=== PATIENT | female | born 1965 | race Caucasian/White ===

== ENCOUNTER 2018-09-09 17:52 | Emergency (ER) | payer OTHER ==
--- NOTE | 2018-09-09 18:05 | PDOC ---
Rapid Medical Evaluation Chief Complaint: Pain, Acute Time Seen by Provider: 09/09/18 18:04 Medical Evaluation: 09/09/18 18:04 I did a brief in person evaluation on this patient. CC: Left Flank pain with UE paresthesia HPI: Pt is a 52 YO female who complains of left flank pain x 3 weeks and left UE paresthesia. PE: Skin: Clear Lungs: Clear Heart:RRR Abd: soft, non tender MS: Moves all extremities without difficulty Neuro: alert Psych: appropriate affect. I have ordered: CV and Abd protocol Pt will proceed to main ED for further evaluation. Discharge Disposition - Diagnosis Flank pain - Discharge Dispostion Condition at time of disposition: Stable - Referrals - Patient Instructions - Post Discharge Activity
[2018-09-09 18:06] VITALS: BP 128/83; PULSE 74; TEMP 97.9; BMI 35.6
[2018-09-09 18:40] LABS: BASO % 0.4 % (0-2.0); EOS % 1.5 % (0-4.5); HEMATOCRIT 41.3 % (32.4-45.2); HEMOGLOBIN 13.9 GM/dL (10.7-15.3); LYMPH % 31.6 % (8-40); MCH 29.7 pg (25.7-33.7); MCHC 33.6 g/dl (32.0-36.0); MEAN CELL VOLUME 88.5 fl (80-96); MEAN PLT VOLUME 9.6 fl (7.5-11.1); NEUT % 58.5 % (42.8-82.8); PLATELET COUNT 224 K/MM3 (134-434); RBC 4.66 M/mm3 (3.60-5.2); RDW 13.7 % (11.6-15.6); WHITE BLOOD COUNT 8.9 K/mm3 (4.0-10.0)
[2018-09-09 18:56] LABS: EPI CELLS 3.3 /HPF (0-5/HPF); URINE APPEARANCE CLEAR; URINE BACTERIA 28.8 /hpf (NEGATIVE); URINE BILIRUBIN NEGATIVE (NEGATIVE); URINE CASTS 1 /lpf (0-8); URINE COLOR YELLOW; URINE GLUCOSE (UA) NEGATIVE (NEGATIVE); URINE KETONE TRACE (NEGATIVE); URINE LEUK ESTERASE NEGATIVE (NEGATIVE); URINE NITRITE NEGATIVE (NEGATIVE); URINE PROTEIN NEGATIVE (NEGATIVE); URINE RBC 5 /hpf (0-4); URINE UROBILINOGEN 0.2 mg/dL (0.2-1.0); URINE WBC 1 /hpf (0-5)
[2018-09-09 19:17] LABS: ALBUMIN 3.7 g/dl (3.4-5.0); ALK PHOS 122 U/L (45-117); ANION GAP 7 MMOL/L (8-16); BILIRUBIN,TOTAL 0.4 mg/dL (0.2-1); BLOOD UREA NITROGEN 19 mg/dL (7-18); CALCIUM 8.8 mg/dL (8.5-10.1); CHLORIDE 104 mmol/L (98-107); CO2 27 mmol/L (21-32); CREATININE 0.6 mg/dL (0.55-1.3); GLUCOSE,RANDOM 94 mg/dL (74-106); LIPASE 204 U/L (73-393); SGPT/ALT 29 U/L (13-61); SODIUM 138 mmol/L (136-145); TOT PROT 7.6 g/dl (6.4-8.2)
--- NOTE | 2018-09-09 22:52 | PDOC ---
*Physical Exam - Vital Signs Last Vital Signs Temp Pulse Resp BP Pulse Ox 97.9 F 74 16 128/83 98 09/09/18 18:03 09/09/18 18:03 09/09/18 18:03 09/09/18 18:03 09/09/18 18:03 09/09/18 22:51 Patient seen by the advanced practice provider under my direct supervision. Ancillary testing reviewed as necessary. I agree with plan as outlined by the advanced practice provider. ED Treatment Course - LABORATORY CBC & Chemistry Diagram: 09/09/18 18:21 09/09/18 18:23 - ADDITIONAL ORDERS Additional order review: Laboratory Results 09/09/18 09/09/18 18:30 18:23 Sodium 138 Potassium Chloride 104 Carbon Dioxide 27 Anion Gap 7 L BUN 19 H Creatinine 0.6 Creat Clearance w eGFR 104.98 Random Glucose 94 Calcium 8.8 Total Bilirubin 0.4 AST ALT 29 Alkaline Phosphatase 122 H Creatine Kinase Troponin I < 0.02 Total Protein 7.6 Albumin 3.7 Lipase 204 Urine Color Yellow Urine Appearance Clear Urine pH 5.0 Ur Specific [place] 1.027 Urine Protein Negative Urine Glucose (UA) Negative Urine Ketones Trace H Urine Blood 2+ H Urine Nitrite Negative Urine Bilirubin Negative Urine Urobilinogen 0.2 Ur Leukocyte Esterase Negative Urine WBC (Auto) 1 Urine RBC (Auto) 5 Urine Casts (Auto) 1 U Epithel Cells (Auto) 3.3 Urine Bacteria (Auto) 28.8 09/09/18 18:21 RBC 4.66 MCV 88.5 MCHC 33.6 RDW 13.7 MPV 9.6 Neutrophils % 58.5 Lymphocytes % 31.6 Monocytes % 8.0 Eosinophils % 1.5 Basophils % 0.4 Medical Decision Making - Medical Decision Making 09/10/18 01:27 Patient seen by the advanced practice provider under my direct supervision. Ancillary testing reviewed as necessary. I agree with plan as outlined by the advanced practice provider. *DC/Admit/Observation/Transfer Diagnosis at time of Disposition: Flank pain - Discharge Dispostion Condition at time of disposition: Stable - Prescriptions Prescriptions: Cyclobenzaprine HCl [Flexeril -] 10 mg PO TID PRN #14 tablet PRN Reason: Muscle Spasms Ibuprofen 600 mg PO QID PRN #20 tablet PRN Reason: Pain - Referrals Referrals: Jaci,Osama E, MD [Primary Care Provider] - - Patient Instructions - Post Discharge Activity
--- NOTE | 2018-09-09 22:55 | PDOC ---
History of Present Illness - General Chief Complaint: Pain, Acute Stated Complaint: LEFT LOWER BACK PAIN Time Seen by Provider: 09/09/18 18:04 History Source: Patient - History of Present Illness Initial Comments: 09/09/18 22:49 52 year old female left flank pain radiating to abdomen. + nausea, dysuria, denies vomiting, diarrhea. fever/ chills. patient reports that he lifts her grandchildren history of kidney stones, high blood pressure and sleep apnea, depression. 09/09/18 22:52 09/10/18 01:15 Past History - Past Medical History Allergies/Adverse Reactions: Allergies Allergy/AdvReac Type Severity Reaction Status Date / Time No Known Allergies Allergy Verified 09/09/18 18:06 Home Medications: Ambulatory Orders Cyclobenzaprine HCl [Flexeril -] 10 mg PO TID PRN #14 tablet 09/10/18 Ibuprofen 600 mg PO QID PRN #20 tablet 09/10/18 COPD: No - Surgical History Gastric Stapling: No - Immunization History Immunization Up to Date: No - Suicide/Smoking/Psychosocial Hx Smoking History: Never smoked Have you smoked in the past 12 months: No Information on smoking cessation initiated: No Hx Alcohol Use: No Drug/Substance Use Hx: No Review of Systems - Review of Systems Able to Perform ROS?: Yes Is the patient limited [place] proficient: No Constitutional: No: Symptoms Reported, See HPI, Chills, Diaphoresis, Fever, Loss of Appetite, Malaise, Night Sweats, Weakness, Weight Stable, Unintentional Wgt. Loss, Unexplained wgt Loss, Other ABD/GI: Yes: Nausea : Yes: Flank Pain *Physical Exam - Vital Signs Last Vital Signs Temp Pulse Resp BP Pulse Ox 97.9 F 74 16 128/83 98 09/09/18 18:03 09/09/18 18:03 09/09/18 18:03 09/09/18 18:03 09/09/18 18:03 - Physical Exam General Appearance: Yes: Appropriately Dressed Respiratory/Chest: positive: Lungs Clear, Normal Breath Sounds Gastrointestinal/Abdominal: positive: Normal Bowel Sounds, Soft. negative: Tender Musculoskeletal: positive: CVA Tenderness, CVA Tenderness (R) ED Treatment Course - LABORATORY CBC & Chemistry Diagram: 09/09/18 18:21 09/09/18 18:23 - ADDITIONAL ORDERS Additional order review: Laboratory Results 09/09/18 09/09/18 18:30 18:23 Sodium 138 Potassium Chloride 104 Carbon Dioxide 27 Anion Gap 7 L BUN 19 H Creatinine 0.6 Creat Clearance w eGFR 104.98 Random Glucose 94 Calcium 8.8 Total Bilirubin 0.4 AST ALT 29 Alkaline Phosphatase 122 H Creatine Kinase Troponin I < 0.02 Total Protein 7.6 Albumin 3.7 Lipase 204 Urine Color Yellow Urine Appearance Clear Urine pH 5.0 Ur Specific [place] 1.027 Urine Protein Negative Urine Glucose (UA) Negative Urine Ketones Trace H Urine Blood 2+ H Urine Nitrite Negative Urine Bilirubin Negative Urine Urobilinogen 0.2 Ur Leukocyte Esterase Negative Urine WBC (Auto) 1 Urine RBC (Auto) 5 Urine Casts (Auto) 1 U Epithel Cells (Auto) 3.3 Urine Bacteria (Auto) 28.8 09/09/18 18:21 RBC 4.66 MCV 88.5 MCHC 33.6 RDW 13.7 MPV 9.6 Neutrophils % 58.5 Lymphocytes % 31.6 Monocytes % 8.0 Eosinophils % 1.5 Basophils % 0.4 Medical Decision Making - Medical Decision Making 09/09/18 22:53 A: Flank Pain; abdominal pain P: CBC CMP CT spiral: negative 09/10/18 01:16 likely this is muscular. discussed results with patient. *DC/Admit/Observation/Transfer Diagnosis at time of Disposition: Flank pain, Musculoskeletal pain - Discharge Dispostion Disposition: HOME Condition at time of disposition: Stable - Prescriptions Prescriptions: Cyclobenzaprine HCl [Flexeril -] 10 mg PO TID PRN #14 tablet PRN Reason: Muscle Spasms Ibuprofen 600 mg PO QID PRN #20 tablet PRN Reason: Pain - Referrals Referrals: Sisi Beatty MD [Primary Care Provider] - - Patient Instructions Printed Discharge Instructions: DI for Musculoskeletal Pain Additional Instructions: take ibuprofen every 6 hours as needed for pain take flexeril as prescribed. it can make you sleepy. do not drive after taking the medication. ' follow up with your doctor as soon as possible return to the ER if symptoms worsen. - Post Discharge Activity
[2018-09-10] MEDS ORDERED: KETOROLAC TROMETHAMINE 30 MG/1 ML VIAL IVPUSH ONE (00:45)
[2018-09-10] MEDS ORDERED: KETOROLAC TROMETHAMINE 30 MG/1 ML VIAL ONE (02:56)
--- NOTE | 2018-09-10 10:31 | EKG ---
Test Reason : Blood Pressure : / mmHG Vent. Rate : 069 BPM Atrial Rate : 069 BPM P-R Int : 156 ms QRS Dur : 094 ms QT Int : 404 ms P-R-T Axes : 060 022 044 degrees QTc Int : 432 ms NORMAL SINUS RHYTHM CANNOT RULE OUT ANTERIOR INFARCT , AGE UNDETERMINED ABNORMAL ECG NO PREVIOUS ECGS AVAILABLE Confirmed by MARKIE CLEMENS MD ([id number]) on 09/10/2018 10:31:00 AM Referred By: Confirmed By:MARKIE CLEMENS MD
== END 2018-09-10 03:11 | disposition home or self-care (01) ==
LOC: JER 17:52
DX: R10.9 Unspecified abdominal pain (principal); M54.89 Other dorsalgia; I10 Essential (primary) hypertension; G47.30 Sleep apnea, unspecified; F32.9 Major depressive disorder, single episode, unspecified; Z87.442 Personal history of urinary calculi
CPT/HCPCS: 36415; 74176-TC; 80053; 81003; 82550; 83690; 84484; 85025; 93005; 93010; 99282-25

== ENCOUNTER 2019-02-08 13:52 | Emergency (ER) | payer OTHER ==
[2019-02-08 14:12] VITALS: BMI 36.4
--- NOTE | 2019-02-08 16:55 | PDOC ---
History of Present Illness - General Chief Complaint: Pain Stated Complaint: LWR BACK PAIN Time Seen by Provider: 02/08/19 16:32 - History of Present Illness Initial Comments: 02/08/19 16:49 CHIEF COMPLAINT: left lower back pain, LLQ pain HISTORY OF PRESENT ILLNESS: 53 yo F with hx of HTN, "bladder insufficiency", and sleep apnea presents to ED with LLQ pain and left lower back pain x 10 days , accomanpied by dysuria that began 3 days ago. Denies any fever but reports chills "but I'm going through menopause right now." Patient does have history small kidney stones. Denies any nausea, vomiting, diarrhea. Patient also c/o swelling to b/l legs and new onset dyspnea since two days ago. PCP is Dr. Santosh Beatty, last physical 2 months ago No recent travel or sick contacts. PAST MEDICAL HISTORY: HTN, sleep apnea, bladder insufficiency, kidney stones FAMILY HISTORY: Denies SOCIAL HISTORY Denies tobacco, alcohol, illicit drug use. SURGICAL HISTORY: Denies ALLERGIES: No known drug allergies REVIEW OF SYSTEMS General/Constitutional: Denies fever or chills. Denies weakness, weight change. HEENT: Denies change in vision. Denies ear pain or discharge. Denies sore throat. Cardiovascular: Denies chest pain or shortness of breath. Respiratory: Denies cough, wheezing, or hemoptysis. Gastrointestinal: Denies nausea, vomiting, diarrhea or constipation. Denies rectal bleeding. Genitourinary: Burning with urination Musculoskeletal: Left lower back pain. Denies joint or muscle swelling or pain. Skin and breasts: Denies rash or easy bruising. Neurologic: Denies headache, vertigo, loss of consciousness, or loss of sensation. Psychiatric: Denies depression or anxiety. PHYSICAL EXAM General Appearance: Well-appearing, appropriately dressed. No apparent distress. HEENT: EOMI, PERRLA, normal ENT inspection, normal voice, TMs normal, pharynx normal. No conjunctival pallor. No photophobia, scleral icterus. Neck: Supple. Trachea midline. No tenderness, rigidity, carotid bruit, stridor , lymphadenopathy, or thyromegaly. Respiratory/Chest: Lungs CTAB. No shortness of breath, chest tenderness, respiratory distress, accessory muscle use. No crackles, rales, rhonchi, stridor , wheezing, dullness Cardiovascular: RRR. S1, S2. No JVD, murmur, bradycardia, tachycardia. Vascular Pulses: Dorsalis-Pedis (R): 2+, Dorsalis-Pedis (L): 2+ Gastrointestinal/Abdominal: Normal bowel sounds. Abdomen soft, non-distended. No tenderness or rebound tenderness. No organomegaly, pulsatile mass, guarding , hernia, hepatomegaly, splenomegaly. Lymphatic: No adenopathy, tenderness. Musculoskeletal/Extremities: Normal inspection. FROM of all extremities, normal capillary refill. Pelvis Stable. No CVA tenderness. No tenderness to extremities, pedal edema, swelling, erythema or deformity. Integumentary: Appropriate color, dry, warm. No cyanosis, erythema, jaundice or rash Neurologic: embedded firmware engineer II-XII intact. Fully oriented, alert. Appropriate mood/affect. Motor strength 5/5. No appreciable EOM palsy, facial droop or sensory deficit. Past History - Past Medical History Allergies/Adverse Reactions: Allergies Allergy/AdvReac Type Severity Reaction Status Date / Time No Known Allergies Allergy Verified 02/08/19 16:18 Home Medications: Ambulatory Orders Amlodipine Besylate [Norvasc -] 10 mg PO DAILY 02/08/19 Diclofenac Sodium 75 mg PO BID #20 tablet. 02/08/19 COPD: No HTN: Yes - Surgical History Gastric Stapling: No - Immunization History Immunization Up to Date: No - Suicide/Smoking/Psychosocial Hx Smoking History: Never smoked Have you smoked in the past 12 months: No Information on smoking cessation initiated: No Hx Alcohol Use: Yes ("Occasional.") Drug/Substance Use Hx: No *Physical Exam - Vital Signs Last Vital Signs Temp Pulse Resp BP Pulse Ox 98.3 F 77 20 141/83 98 02/08/19 14:09 02/08/19 14:09 02/08/19 14:09 02/08/19 14:09 02/08/19 14:09 ED Treatment Course - LABORATORY CBC & Chemistry Diagram: 02/08/19 17:08 02/08/19 17:08 Medical Decision Making - Medical Decision Making 02/08/19 16:55 53 yo F with hx of HTN, "bladder insufficiency", and sleep apnea presents to ED with LLQ pain and left lower back pain x 10 days, accomanpied by dysuria that began 3 days ago. -labs, Toradol 02/08/19 19:31 labs unremarkable other than 1+ blood to UA. will do renal US to eval for stone. Patient reassessed, states her pain is better after Toradol. US negative for stones. Patient did note that she passed stones. Advised patient to take medication as prescribed and follow up with urology if symptoms persist. Advised patient of signs and symptoms for return to ED. Patient verbalized understanding and agrees to plan. *DC/Admit/Observation/Transfer Diagnosis at time of Disposition: Musculoskeletal pain, Flank pain - Discharge Dispostion Disposition: HOME Condition at time of disposition: Stable Decision to Admit order: No - Prescriptions Prescriptions: Diclofenac Sodium 75 mg PO BID #20 tablet.dr - Referrals Referrals: Candido Beatty MD [Primary Care Provider] - Venancio Alfaro MD [Staff Physician] - - Patient Instructions Printed Discharge Instructions: DI for Flank Pain Additional Instructions: Please take medications as prescribed. Follow up with urology if symptoms persist. If you develop fever, chills, nausea, vomiting, diarrhea, or any new or worsening symptoms, please return to the ER. - Post Discharge Activity
[2019-02-08] MEDS ORDERED: KETOROLAC TROMETHAMINE 15 MG/ML VIAL IVPUSH ONE (16:56)
[2019-02-08] MEDS ORDERED: KETOROLAC TROMETHAMINE 15 MG/ML VIAL ONE (17:20)
[2019-02-08 17:34] LABS: BASO % 0.8 % (0-2.0); EOS % 3.4 % (0-4.5); HEMATOCRIT 42.4 % (32.4-45.2); HEMOGLOBIN 13.8 GM/dL (10.7-15.3); LYMPH % 34.4 % (8-40); MCH 29.2 pg (25.7-33.7); MCHC 32.6 g/dl (32.0-36.0); MEAN CELL VOLUME 89.4 fl (80-96); MEAN PLT VOLUME 9.7 fl (7.5-11.1); MONO % 7.7 % (3.8-10.2); NEUT % 53.7 % (42.8-82.8); PLATELET COUNT 251 K/MM3 (134-434); RBC 4.74 M/mm3 (3.60-5.2); WHITE BLOOD COUNT 7.8 K/mm3 (4.0-10.0)
[2019-02-08 17:40] LABS: EPI CELLS 1.7 /HPF (0-5/HPF); HYALINE CASTS 0 /lpf (0-8); PH,URINE 5.5 (5.0-8.0); URINE APPEARANCE CLEAR; URINE BACTERIA 35.7 /hpf (NEGATIVE); URINE BILIRUBIN NEGATIVE (NEGATIVE); URINE COLOR YELLOW; URINE GLUCOSE (UA) NEGATIVE (NEGATIVE); URINE KETONE NEGATIVE (NEGATIVE); URINE LEUK ESTERASE NEGATIVE (NEGATIVE); URINE NITRITE NEGATIVE (NEGATIVE); URINE PROTEIN NEGATIVE (NEGATIVE); URINE RBC 1 /hpf (0-4); URINE UROBILINOGEN 0.2 mg/dL (0.2-1.0); URINE WBC 1 /hpf (0-5)
[2019-02-08 18:03] LABS: ALBUMIN 3.8 g/dl (3.4-5.0); BILIRUBIN,TOTAL 0.2 mg/dL (0.2-1); BLOOD UREA NITROGEN 17.9 mg/dL (7-18); CALCIUM 8.7 mg/dL (8.5-10.1); CREATININE 0.7 mg/dL (0.55-1.3); POTASSIUM 3.9 mmol/L (3.5-5.1); TOT PROT 7.1 g/dl (6.4-8.2)
[2019-02-08 19:52] VITALS: BP 132/80; PULSE 75; TEMP 98.1
== END 2019-02-08 19:53 | disposition home or self-care (01) ==
LOC: JER 13:52
PROC: 3E0333Z Introduction of Anti-inflammatory into Peripheral Vein, Percutaneous Approach (ICD-10-PCS; principal; 2019-02-08)
DX: R10.32 Left lower quadrant pain (principal); M79.18 Myalgia, other site; I10 Essential (primary) hypertension; G47.39 Other sleep apnea
CPT/HCPCS: 36415; 76775-TC; 80053; 81003; 83880; 85025; 87086; 96374; 99283-25

== ENCOUNTER 2019-07-18 11:48 | Emergency (ER) | payer OTHER ==
[2019-07-18 11:58] VITALS: BP 135/93; PULSE 86; TEMP 97.4; BMI 35.5
[2019-07-18] MEDS ORDERED: guaiFENesin/D-METHORPHAN HB 10 ML UNIT-DOSE CUPS PO ONE (13:12)
[2019-07-18] MEDS ORDERED: IBUPROFEN 400 MG TABLET (FP) PO PRN (13:12)
[2019-07-18] MEDS ORDERED: guaiFENesin/D-METHORPHAN HB 10 ML UNIT-DOSE CUPS ONE (13:19)
[2019-07-18] MEDS ORDERED: IBUPROFEN 400 MG TABLET (FP) PO ONE (13:19)
--- NOTE | 2019-07-18 14:47 | PDOC ---
History of Present Illness - General Chief Complaint: Cold Symptoms Stated Complaint: COUGHING/FEVER Time Seen by Provider: 07/18/19 12:50 History Source: Patient Exam Limitations: No Limitations - History of Present Illness Initial Comments: 07/20/19 10:39 53 year old female with medical history of HTN and cholesterol and surgical history x 2 presents with sorethroat, cough and lower back pain x 3-4 days. Also reports chest discomfort with coughing. Denies fever or chills. States taking medication with no relief of symptoms. 07/20/19 10:46 Timing/Duration: reports: just prior to arrival Severity: reports: mild Possible Cause: Yes: no prior episodes Modifying Factors: improves with: coughing Associated Symptoms: reports: chest pain/soreness, cough, sore throat Past History - Travel Traveled outside of the country in the last 30 days: No Close contact w/someone who was outside of country & ill: No - Past Medical History Allergies/Adverse Reactions: Allergies Allergy/AdvReac Type Severity Reaction Status Date / Time No Known Allergies Allergy Verified 07/18/19 11:55 Home Medications: Ambulatory Orders Amlodipine Besylate [Norvasc -] 10 mg PO DAILY 02/08/19 Diclofenac Sodium 75 mg PO BID #20 tablet. 02/08/19 Azithromycin [Zithromax 250mg Tablets -] 250 mg PO UTDICT #6 tab 07/18/19 Guaifenesin Dm [Robitussin Dm -] 10 ml PO Q8H #7 cup 07/18/19 Ibuprofen 600 mg PO TID #21 tablet 07/18/19 COPD: No HTN: Yes - Surgical History Gastric Stapling: No - Immunization History Immunization Up to Date: No - Psycho Social/Smoking Cessation Hx Smoking History: Never smoked Have you smoked in the past 12 months: No Hx Alcohol Use: No Drug/Substance Use Hx: No Respiratory Specific PMHX - Complaint Specific PMHX Hx Airway Support: No Hx Intubation: No Hx Smoking Exposure: No Hx Vaping: No Hx Allergic Rhinitis: No Hx Pneumonia: No Hx TB (Tuberculosis): No Review of Systems - Review of Systems Able to Perform ROS?: Yes Is the patient limited [place] proficient: No Constitutional: No: Chills, Malaise HEENTM: Yes: Throat Pain. No: Ear Discharge, Nose Congestion, Nose Bleeding, Mouth Pain, Dental Problems Respiratory: Yes: Cough. No: Shortness of Breath, SOB with Exertion, Wheezing, Productive cough Cardiac (ROS): No: Chest Pain, Lightheadedness, Palpitations ABD/GI: No: Diarrhea, Difficulty Swallowing, Nausea, Poor Appetite, Vomiting : No: Burning, Dysuria, Hematuria Musculoskeletal: No: Back Pain, Muscle Pain Integumentary: No: Bruising, Erythema Neurological: No: Headache, Numbness, Paresthesia Psychiatric: No: Depression, Frequent Crying *Physical Exam - Vital Signs Last Vital Signs Temp Pulse Resp BP Pulse Ox 97.4 F L 86 17 135/93 97 07/18/19 11:56 07/18/19 11:56 07/18/19 11:56 07/18/19 11:56 07/18/19 11:56 - Physical Exam General Appearance: Yes: Nourished, Appropriately Dressed HEENT: positive: [place], TMs Normal, Pharynx Normal, Scleral Icterus (R) (no drainage from eye, + erythematous conjunctiva). negative: Rhinorrhea Neck: positive: Supple Respiratory/Chest: positive: Lungs Clear Cardiovascular: positive: Regular Rhythm, Regular Rate Extremity: positive: Normal Capillary Refill Neurologic: positive: Fully Oriented, Alert ED Treatment Course - RADIOLOGY Radiology Studies Ordered: Category Date Time Status CHEST PA & LAT [RAD] Stat Radiology 07/18/19 13:12 Completed - Medications Given in the ED: ED Medications Discontinued Medications Generic Name Dose Route Start Last Admin Trade Name Freq PRN Reason Stop Dose Admin Guaifenesin 10 ml 07/18/19 13:12 07/18/19 13:20 Robitussin Dm - PO 07/18/19 13:13 10 ml ONCE ONE Administration Medical Decision Making - Medical Decision Making 07/20/19 10:46 53 year old female with medical history of HTN and cholesterol and surgical history x 2 presents with sore throat, cough and lower back pain x 3- 4 days. Also reports chest discomfort with coughing. Denies fever or chills. 07/20/19 10:46 URI conjunctiviti 07/20/19 10:49 chest xray rx: zpack ibuprofen guafensin d/c home f/u with pmd 07/20/19 10:50 Discharge - Discharge Information Problems reviewed: Yes Clinical Impression/Diagnosis: URI (upper respiratory infection) Qualifiers: URI type: unspecified viral URI Qualified Code(s): J06.9 - Acute upper respiratory infection, unspecified Conjunctivitis Qualifiers: Conjunctivitis type: acute Acute conjunctivitis type: unspecified Laterality: right Qualified Code(s): H10.31 - Unspecified acute conjunctivitis, right eye Condition: Good Disposition: HOME - Admission No - Additional Discharge Information Prescriptions: Azithromycin [Zithromax 250mg Tablets -] 250 mg PO UTDICT #6 tab Guaifenesin Dm [Robitussin Dm -] 10 ml PO Q8H #7 cup Ibuprofen 600 mg PO TID #21 tablet - Follow up/Referral Referrals: Sisi Beatty MD [Primary Care Provider] - (call for follow up appointment ) - Patient Discharge Instructions Patient Printed Discharge Instructions: DI for Viral Upper Respiratory Infection -- Adult Additional Instructions: Drink plenty fluids Rest Take medication as prescribed Call primary physician for follow up appointment - Post Discharge Activity Work/Back to School Note: Back to Work
== END 2019-07-18 14:55 | disposition home or self-care (01) ==
LOC: JERFT 11:48 → JER 11:48 → JERFT 14:55
DX: J06.9 Acute upper respiratory infection, unspecified (principal); B97.89 Other viral agents as the cause of diseases classified elsewhere; H10.31 Unspecified acute conjunctivitis, right eye; I10 Essential (primary) hypertension
CPT/HCPCS: 71046-TC-FY; 99283-25